=== PATIENT | female | born 1940 | race African-American/Black ===

== ENCOUNTER 2022-11-05 17:51 | Emergency (ER) | payer OTHER, MEDICAID ==
[~2022-11-05] VITALS: Ht 162.6 cm; Wt 87.0 kg
[2022-11-05 17:57] VITALS: BP 145/79
[2022-11-05 19:35] LABS: HEMATOCRIT. 42.9 % (36.0-48.0); HEMOGLOBIN. 14.1 g/dL (12.0-16.0); MEAN CORPUSCULAR HEMOGLOBIN 29.7 pg (28.0-32.0); MEAN CORPUSCULAR VOLUME 90.3 fL (81.0-99.0); RED BLOOD CELL COUNT 4.75 mill/uL (4.2-5.4); RED CELL DISTRIBUTION WIDTH 14.1 % (11.6-14.6)
[2022-11-05 19:40] LABS: CHLORIDE 114 mEq/L (98-107)
[2022-11-05 20:03] LABS: MEAN PLATELET VOLUME 9.3 fl (7.4-10.4); PLATELET 264 x1000/uL (130-400)
[2022-11-05 20:05] LABS: PLATELET ESTIMATE NORMAL
== END 2022-11-05 23:05 | disposition left against medical advice (07) ==
LOC: ER 17:51
DX: Z53.21 Procedure and treatment not carried out due to patient leaving prior to being seen by health care provider (principal)
CPT/HCPCS: 36415; 80053; 85025; 99281